=== PATIENT | female | born 1965 | race Caucasian/White ===

== ENCOUNTER 2019-05-09 21:16 | Inpatient (IN) ==
[2019-05-09] MEDS ORDERED: ONDANSETRON 4 MG/2 ML VIAL IV STA (21:43)
[2019-05-09] MEDS ORDERED: MORPHINE 4 MG/1 ML VIAL IV STA (21:43)
[2019-05-09] MEDS ORDERED: SODIUM CHLORIDE 0.9% 1,000 ML IV STA (21:43)
[2019-05-09 22:28] LABS: Basophils % 0.5 % (0.0-0.8); Eosinophils # 0.2 10*3/uL (0.0-0.87); Eosinophils % 2.8 % (0.00-10.9); Hematocrit 42.3 VOL% (35.7-47.0); Hemoglobin 13.6 GM/DL (12.0-16.0); Immature Granulocytes % 0.1 %; Immature Granulocytes Absolute 0.01 #; Lymphocytes # 2.6 10*3/uL (1.4-4.0); Mean Corpuscular HGB Conc 32.2 GM/DL (32-36); Mean Corpuscular Volume 87.6 FL (87-102); Mean Platelet Volume 10.3 FL (9.6-12.0); Monocytes % 7.3 % (1.7-12.7); Neutrophils % 55.3 % (38.7-73.9); Platelet Count 234 T/CUMM (130-400); Red Blood Count 4.83 MC/CUMM (3.8-5.5); Red Cell Distribution Width 13.2 % (9.3-17.3); White Blood Count 7.6 T/CUMM (4-12)
[2019-05-09 22:35] LABS: Apearance,Urine CLEAR (Clear); Bacteria,Urine Occasional /HPF (Few); Bilirubin,Urine Negative (Negative); Blood, Urine Small mg/dL (Negative); Glucose,Urine (UA) Negative (Negative); Ketones,Urine Negative (Negative); Mucus,Urine Occasional /LPF (Occasional); Nitrite,Urine Negative (Negative); Protein,Urine Negative; RBC,Urine 2 /HPF (0-4); Squamous Epithelial Cell,Urine Occasional /HPF (0-10); Urine Color Yellow (Yellow); Urine Specific Gravity 1.006 (1.001-1.035); WBC,Urine 6 /HPF (0-6)
[2019-05-09 22:47] LABS: Albumin 3.7 G/DL (3.4-5.0); Bilirubin,Total 1.6 MG/DL (0.2-1.0); Calcium 8.9 MG/DL (8.5-10.1); Osmolality,Calculated 285.7 MOS/KG (273-304); Total Protein 6.9 G/DL (6.4-8.3)
[2019-05-10] MEDS ORDERED: LEVOFLOXACIN INJ 500 MG in PREMIX 1 EACH IV STA (01:07)
[2019-05-10] MEDS ORDERED: PROMETHAZINE 25 MG/1 ML VIAL IM PRN (01:52)
[2019-05-10] MEDS ORDERED: NICOTINE 21 MG/24 HR PATCH TRANSDERM PRN (01:52)
[2019-05-10 02:25] LABS: Risk Ratio 5.11; VLDL CHOLESTEROL 36.6 MG/DL
[2019-05-10] MEDS: SODIUM CHLORIDE 0.9% 1,000 ML IV SCH ×2 (04:03→15:22)
[2019-05-10] MEDS: MORPHINE 4 MG/1 ML VIAL IV PRN ×2 (04:40→21:05)
[2019-05-10] MEDS: ONDANSETRON 4 MG/2 ML VIAL IV PRN ×3 (04:41→23:10)
[2019-05-10] MEDS: metroNIDAZOLE INJ 500 MG in PREMIX 1 EACH IV SCH ×3 (09:52→21:06)
[2019-05-10] MEDS: ENOXAPARIN 40 MG/0.4 ML SYRINGE SUBCUT SCH (09:53)
[2019-05-11] MEDS: MORPHINE 4 MG/1 ML VIAL IV PRN ×2 (01:12→05:27)
[2019-05-11] MEDS: LEVOFLOXACIN INJ 500 MG in PREMIX 1 EACH IV SCH (01:14)
[2019-05-11] MEDS: SODIUM CHLORIDE 0.9% 1,000 ML IV SCH ×4 (01:54→21:32)
[2019-05-11] MEDS: metroNIDAZOLE INJ 500 MG in PREMIX 1 EACH IV SCH ×3 (02:58→17:42)
[2019-05-11] MEDS: ONDANSETRON 4 MG/2 ML VIAL IV PRN ×2 (05:28→12:30)
[2019-05-11] MEDS ORDERED: INDOMETHACIN SUPP 50 MG SUPP RECTAL ONE ×2 (06:00→10:18)
[2019-05-11 06:42] LABS: Basophils % 0.2 % (0.0-0.8); Eosinophils % 0.5 % (0.00-10.9); Hematocrit 37.2 VOL% (35.7-47.0); Hemoglobin 11.8 GM/DL (12.0-16.0); Immature Granulocytes % 0.5 %; Immature Granulocytes Absolute 0.04 #; Lymphocytes # 1.7 10*3/uL (1.4-4.0); Lymphocytes % 20.4 % (21.3-54.2); Mean Corpuscular HGB Conc 31.7 GM/DL (32-36); Mean Corpuscular Volume 89.2 FL (87-102); Mean Platelet Volume 10.7 FL (9.6-12.0); Neutrophils % 74.4 % (38.7-73.9); Platelet Count 183 T/CUMM (130-400); Red Blood Count 4.17 MC/CUMM (3.8-5.5); Red Cell Distribution Width 13.3 % (9.3-17.3); White Blood Count 8.4 T/CUMM (4-12)
[2019-05-11 07:21] LABS: Albumin 2.8 G/DL (3.4-5.0); Bilirubin,Total 0.8 MG/DL (0.2-1.0); Calcium 8.2 MG/DL (8.5-10.1); Total Protein 5.5 G/DL (6.4-8.3)
[2019-05-11] MEDS: ENOXAPARIN 40 MG/0.4 ML SYRINGE SUBCUT SCH (09:15)
[2019-05-11 09:55] LABS: PT Patient Result 10.5 SECS (9.6-12.2)
[2019-05-11] MEDS ORDERED: fentaNYL 100 MCG/2 ML VIAL ONE (10:01)
[2019-05-11] MEDS ORDERED: MIDAZOLAM 2 MG/2 ML VIAL ONE (10:02)
[2019-05-11] MEDS ORDERED: SEVOFLURANE 1 UNIT/15 MINUTE INH ONE (12:41)
[2019-05-12] MEDS: metroNIDAZOLE INJ 500 MG in PREMIX 1 EACH IV SCH ×5 (01:30→23:50)
[2019-05-12] MEDS: LEVOFLOXACIN INJ 500 MG in PREMIX 1 EACH IV SCH (02:30)
[2019-05-12 06:33] LABS: Basophils % 0.3 % (0.0-0.8); Eosinophils # 0.1 10*3/uL (0.0-0.87); Hematocrit 36.1 VOL% (35.7-47.0); Hemoglobin 11.5 GM/DL (12.0-16.0); Immature Granulocytes % 0.3 %; Immature Granulocytes Absolute 0.02 #; Lymphocytes # 2.2 10*3/uL (1.4-4.0); Lymphocytes % 36.6 % (21.3-54.2); Mean Corpuscular HGB Conc 31.9 GM/DL (32-36); Mean Corpuscular Volume 89.1 FL (87-102); Monocytes % 6.6 % (1.7-12.7); Neutrophils % 54.2 % (38.7-73.9); Platelet Count 186 T/CUMM (130-400); Red Blood Count 4.05 MC/CUMM (3.8-5.5); White Blood Count 6.1 T/CUMM (4-12)
[2019-05-12 07:01] LABS: Albumin 2.8 G/DL (3.4-5.0); Bilirubin,Total 0.5 MG/DL (0.2-1.0); Calcium 8.3 MG/DL (8.5-10.1); Osmolality,Calculated 291.3 MOS/KG (273-304); Total Protein 5.5 G/DL (6.4-8.3)
[2019-05-12] MEDS: SODIUM CHLORIDE 0.9% 1,000 ML IV SCH ×2 (08:45→18:14)
[2019-05-12] MEDS ORDERED: TISSUE ADHESIVE 1 EACH APPLICATOR TOP ONE (13:59)
[2019-05-12] MEDS ORDERED: BUPIVACAINE MPF 0.25% 30 ML VIAL ONE (13:59)
[2019-05-12] MEDS ORDERED: LIDOCAINE 1%/EPI INJ 20 ML VIAL ONE (13:59)
[2019-05-12] MEDS ORDERED: SEVOFLURANE 1 UNIT/15 MINUTE INH ONE (16:11)
[2019-05-12] MEDS ORDERED: LIDOCAINE 2% 5 ML VIAL ONE (16:11)
[2019-05-12] MEDS ORDERED: ONDANSETRON 4 MG/2 ML VIAL ONE ×2 (16:12→16:30)
[2019-05-12] MEDS ORDERED: DEXAMETHASONE 4 MG/1 ML VIAL ONE (16:12)
[2019-05-12] MEDS ORDERED: fentaNYL 100 MCG/2 ML VIAL ONE (16:12)
[2019-05-12] MEDS ORDERED: MIDAZOLAM 2 MG/2 ML VIAL ONE (16:12)
[2019-05-12] MEDS ORDERED: LACTATED RINGERS 1,000 ML IV ONE (16:12)
[2019-05-12] MEDS ORDERED: ROCURONIUM 100 MG/10 ML VIAL IV ONE (16:12)
[2019-05-12] MEDS ORDERED: METOPROLOL TARTRATE 5 MG/5 ML VIAL IV ONE (16:12)
[2019-05-12] MEDS ORDERED: GLYCOPYRROLATE 0.4 MG/2 ML VIAL ONE (16:18)
[2019-05-12] MEDS ORDERED: NEOSTIGMINE 10 MG/10 ML VIAL ONE (16:18)
[2019-05-12] MEDS ORDERED: hydrALAZINE 20 MG/1 ML VIAL IV ONE (16:24)
[2019-05-12] MEDS: ONDANSETRON 4 MG/2 ML VIAL IV PRN (16:31)
[2019-05-12] MEDS: MORPHINE 4 MG/1 ML VIAL IV PRN (18:35)
[2019-05-12] MEDS: LACTATED RINGERS 1,000 ML IV SCH (23:50)
[2019-05-13] MEDS: LEVOFLOXACIN INJ 500 MG in PREMIX 1 EACH IV SCH (01:07)
[2019-05-13] MEDS: SODIUM CHLORIDE 0.9% 1,000 ML IV SCH (02:59)
[2019-05-13] MEDS: metroNIDAZOLE INJ 500 MG in PREMIX 1 EACH IV SCH ×2 (05:57→12:30)
[2019-05-13 06:01] LABS: Albumin 2.8 G/DL (3.4-5.0); Bilirubin,Total 0.5 MG/DL (0.2-1.0); Calcium 8.3 MG/DL (8.5-10.1); Total Protein 5.5 G/DL (6.4-8.3)
[2019-05-13] MEDS: LACTATED RINGERS 1,000 ML IV SCH (07:12)
[2019-05-13] MEDS ORDERED: INFLUENZA VIRUS VACCINE 0.5 ML SYRINGE IM ONE (12:07)
[2019-05-13 16:24] VITALS: BP 148/71
== END 2019-05-13 16:16 | disposition home or self-care (01) | DRG 419 ==
LOC: N.ED 21:16 → SUATTDRO 05-10 01:52 → N.EDINP 05-10 01:52 → N.3E 05-10 02:18
PROVIDERS: ADMIT Internal Medicine; ATTEND Emergency Medicine
PROC: ERCPWSP (ICD-10-PCS; 2019-05-11 08:35)
PROC: LAPCHOL (2019-05-12 14:52)